=== PATIENT | male | born 1965 | race Caucasian/White ===

== ENCOUNTER 2022-12-10 10:32 | Emergency (ER) | payer OTHER ==
[~2022-12-10] VITALS: Ht 170.2 cm; Wt 100.0 kg
[2022-12-10 11:45] VITALS: BP 127/82
[2022-12-10 11:48] LABS: CLARITY,URINE SLIGHTLY CLOUDY (Clear); COLOR,URINE YELLOW (Yellow); GLUCOSE, URINE NEGATIVE (Neg); KETONES,URINE NEGATIVE (Neg); LEUKOCYTE ESTERASE ,URINE NEGATIVE (Neg); NITRITES, URINE NEGATIVE (Neg); OCCULT BLOOD,URINE NEGATIVE (Neg); PROTEIN,URINE NEGATIVE (Neg); UROBILINOGEN,URINE 0.2 E.U/dL (0.2-1.0)
[2022-12-10 11:50] LABS: UA COLLECTION TYPE CLN CATCH MIDSTREAM
[2022-12-10 12:13] LABS: MUCUS STRANDS MODERATE /LPF (Neg); SQUAMOUS EPITHELIAL CELL,UR FEW /LPF (FEW)
[2022-12-10 12:14] LABS: RBC,URINE 0-2 /HPF (0-2); TRANSITIONAL EPI CELLS,URINE FEW /HPF; WBC,URINE 0-4 /HPF (0-4)
[2022-12-10 12:16] LABS: AMORPHOUS PHOSPHATES 4+; BACTERIA,URINE FEW /HPF (Neg)
== END 2022-12-10 12:57 | disposition home or self-care (01) ==
LOC: ER 10:32
DX: S63.501A Unspecified sprain of right wrist, initial encounter (principal); R31.9 Hematuria, unspecified; F17.200 Nicotine dependence, unspecified, uncomplicated; E78.00 Pure hypercholesterolemia, unspecified; I10 Essential (primary) hypertension; X58.XXXA Exposure to other specified factors, initial encounter; Y93.89 Activity, other specified; Y92.89 Other specified places as the place of occurrence of the external cause; Y99.8 Other external cause status
CPT/HCPCS: 73100; 73110; 81001; 99284

== ENCOUNTER 2024-03-24 08:54 | Inpatient (IN) | payer BC, MEDICAID ==
[~2024-03-24] VITALS: Ht 170.2 cm; Wt 104.9 kg
[2024-03-24] MEDS ORDERED: pantoprazole 40mg IV 80 MG in normal saline 100ml IV soln 100 ML IV ONE (09:20)
[2024-03-24] MEDS: ondansetron/PF 4mg/2ml inj IV ONE (09:20)
[2024-03-24] MEDS ORDERED: morphine 2 MG/ML inj. syringe IV PRN ×3 (09:20→12:05)
[2024-03-24 10:14] LABS: EOSINOPHILS # (AUTO) 0.3 X10'3 (0-0.9); RED CELL DISTRIBUTION WIDTH 15.6 % (11.5-14.5)
[2024-03-24 10:15] LABS: BASOPHILS # (AUTO) 0.1 X10'3 (0-0.2); BASOPHILS % (AUTO) 1.1 % (0-1); EOSINOPHILS % (AUTO) 3.6 % (0-6); HEMATOCRIT 53.5 % (42.0-52.0); LYMPHOCYTES # (AUTO) 1.8 X10'3 (1.1-4.8); LYMPHOCYTES % (AUTO) 21.6 % (21-51); MEAN CORPUSCULAR HEMOGLOBIN 29.6 PG (27.0-31.0); MEAN CORPUSCULAR HGB CONC 33.5 g/dL (33.0-36.5); MEAN CORPUSCULAR VOLUME 88.1 FL (78-98); MEAN PLATELET VOLUME 8.9 FL (7.4-10.4); MONOCYTES # (AUTO) 0.9 X10'3 (0-0.9); MONOCYTES % (AUTO) 10.2 % (2-12); NEUTROPHILS # (AUTO) 5.4 X10'3 (1.8-7.7); NEUTROPHILS % (AUTO) 63.5 % (42-75); PLATELET COUNT 238 X10'3 (140-440); RED BLOOD COUNT 6.07 X10'6 (4.70-6.10); WHITE BLOOD COUNT 8.5 X10'3 (4.5-11.0)
[2024-03-24] MEDS: diltiazem 5mg/ml 5ml inj. IV ONE ×2 (10:44→11:31)
[2024-03-24] MEDS: pantoprazole 40 MG vial IV ONE (10:45)
[2024-03-24 10:55] LABS: ALANINE AMINOTRANSFERASE 27 U/L (12-78); ALKALINE PHOSPHATASE 65 IU/L (46-116); ANION GAP 6 (8-16); ASPARTATE AMINO TRANSFERASE 18 U/L (10-37); BILIRUBIN,TOTAL 0.7 MG/DL (0.1-1.0); BLOOD UREA NITROGEN 19 MG/DL (7-18); BUN/CREATININE RATIO 13.2 (10.0-20.0); CALCIUM 9.8 MG/DL (8.5-10.1); CHLORIDE 106 MMOL/L (99-107); CREATININE 1.44 MG/DL (0.60-1.10); GLUCOSE 116 MG/DL (70-104); POTASSIUM 4.4 MMOL/L (3.5-5.1); SODIUM 140 MMOL/L (135-145); TOTAL CARBON DIOXIDE 28.4 MMOL/L (24-32); eCRCL 52 ML/MIN; eGFR 50 ML/MIN
[2024-03-24 11:07] LABS: LIPASE 34 U/L (16-77); PRO BRAIN NATRIURETIC PEPTIDE 1155 PG/ML (0-125)
[2024-03-24] MEDS ORDERED: TADA20TA43 PO (11:18)
[2024-03-24] MEDS: diltiazem-NS 100mg/100ml 100 ML IV PRN (11:31)
[2024-03-24 11:41] LABS: APTT 28 SECONDS (22-32); PROTHROMBIN TIME 10.6 SECONDS (9.0-12.0)
[2024-03-24] MEDS: normal saline 1000ML IV soln IVB ONE (11:47)
[2024-03-24] MEDS ORDERED: potassium Cl 40MEQ/1/2NS 520ml 520 ML IV PRN (12:05)
[2024-03-24] MEDS ORDERED: magnesium hydroxide 30ml (MOM) UD suspension PO PRN (12:05)
[2024-03-24] MEDS ORDERED: ondansetron/PF 4mg/2ml inj IV PRN (12:05)
[2024-03-24] MEDS ORDERED: magnesium Cl slow-release 64mg tablet PO PRN (12:05)
[2024-03-24] MEDS ORDERED: magnesium 4gm in 100ml NS 100 ML IV PRN (12:05)
[2024-03-24] MEDS ORDERED: acetaminophen 325mg tablet PO PRN (12:05)
[2024-03-24] MEDS ORDERED: mag hydrox/Alum hydrox/simeth 30ml oral suspension PO PRN (12:05)
[2024-03-24] MEDS ORDERED: potassium Cl 20 mEq SR tablet PO PRN ×2 (12:05)
[2024-03-24] MEDS ORDERED: magnesium 2GM in 50ml NS 50 ML IV PRN (12:05)
[2024-03-24] MEDS: metoprolol tartrate 50mg tablet PO SCH (12:32)
[2024-03-24] MEDS: ringers solution, lacted 1,000 ML IV ONE (12:38)
[2024-03-24] MEDS: normal saline 1000ml 1,000 ML IV SCH (12:38)
[2024-03-24 13:02] LABS: OCCULT BLOOD STOOL POSITIVE (Neg)
[2024-03-24 14:03] LABS: PHOSPHORUS 3.5 MG/DL (2.3-4.5)
[2024-03-24] MEDS: K and/or MAG REPLACEMENT MC SCH (20:00)
[2024-03-24 21:25] VITALS: BP 146/101; PULSE 74; RESP 15; TEMP 97.6; O2SAT 98
[2024-03-24] MEDS: pantoprazole 40 MG vial IV SCH (22:19)
[2024-03-24] MEDS: diltiazem 30mg tablet PO ONE (23:25)
[2024-03-25] VITALS (14 sets, daily range): BP systolic 105–148; BP diastolic 69–103; PULSE 58–83; RESP 10–18; TEMP 97.3–97.7; O2SAT 94–98
[2024-03-25] MEDS: diltiazem 30mg tablet PO SCH (05:23)
[2024-03-25 05:57] LABS: BASOPHILS # (AUTO) 0.1 X10'3 (0-0.2); EOSINOPHILS # (AUTO) 0.3 X10'3 (0-0.9); EOSINOPHILS % (AUTO) 4.1 % (0-6); HEMATOCRIT 47.7 % (42.0-52.0); HEMOGLOBIN 15.9 g/dl (14.0-17.9); LYMPHOCYTES % (AUTO) 24.3 % (21-51); MEAN CORPUSCULAR HEMOGLOBIN 29.5 PG (27.0-31.0); MEAN CORPUSCULAR HGB CONC 33.4 g/dL (33.0-36.5); MEAN CORPUSCULAR VOLUME 88.3 FL (78-98); MEAN PLATELET VOLUME 8.7 FL (7.4-10.4); MONOCYTES # (AUTO) 0.8 X10'3 (0-0.9); MONOCYTES % (AUTO) 9.5 % (2-12); NEUTROPHILS % (AUTO) 61.1 % (42-75); PLATELET COUNT 187 X10'3 (140-440); RED CELL DISTRIBUTION WIDTH 15.4 % (11.5-14.5); WHITE BLOOD COUNT 8.1 X10'3 (4.5-11.0)
[2024-03-25 06:12] LABS: ALBUMIN 3.4 G/DL (3.4-5.0); ANION GAP 5 (8-16); BLOOD UREA NITROGEN 24 MG/DL (7-18); BUN/CREATININE RATIO 18.5 (10.0-20.0); CALCIUM 8.8 MG/DL (8.5-10.1); CHLORIDE 108 MMOL/L (99-107); CHOL/HDL RATIO 5.8 (0.00-4.99); CHOLESTEROL 185 MG/DL (0-200); GLUCOSE 106 MG/DL (70-104); HDL CHOLESTEROL 32 MG/DL (35-60); LDL CHOLESTEROL 130 MG/DL (50-100); POTASSIUM 4.2 MMOL/L (3.5-5.1); SODIUM 138 MMOL/L (135-145); TOTAL CARBON DIOXIDE 25.2 MMOL/L (24-32); TRIGLYCERIDES 137 MG/DL (20-135); eCRCL 57 ML/MIN; eGFR 57 ML/MIN
[2024-03-25] MEDS ORDERED: LIDOcaine 2% Viscous 15ml cup ONE (09:21)
[2024-03-25] MEDS ORDERED: fentaNYL/PF 50MCG/1 ML 2ML syringe ONE (09:52)
[2024-03-25] MEDS ORDERED: MIDAZolam 1 MG/ML 5ML VIAL ONE (09:52)
[2024-03-25] MEDS ORDERED: fentaNYL/PF 50MCG/1 ML 2ML syringe IV PRN (10:20)
[2024-03-25] MEDS: normal saline 1000ml 1,000 ML IV SCH (10:20)
[2024-03-25] MEDS ORDERED: MIDAZolam 1 MG/ML 5ML VIAL IV PRN (10:20)
[2024-03-25] MEDS ORDERED: pantoprazole 40mg Tablet.DR PO SCH ×2 (10:24→20:00)
[2024-03-25] MEDS: atorvastatin 20mg tablet PO SCH (11:17)
[2024-03-25] MEDS: metoprolol tartrate 25mg tablet PO SCH (11:18)
[2024-03-25] MEDS ORDERED: OMEP-271 PO (13:33)
[2024-03-25] MEDS ORDERED: ATOR20TA66 PO (13:33)
[2024-03-25] MEDS ORDERED: METO50TA17 PO (13:33)
[2024-03-25] MEDS ORDERED: DOCU-148 PO (13:40)
[2024-03-25] MEDS ORDERED: POLY17PO10 PO (13:40)
== END 2024-03-25 15:30 | disposition home or self-care (01) | DRG 377 ==
LOC: ER 08:55 → ED HOLD 12:16 → PCU 3S 21:25
PROVIDERS: ADMIT Internal Medicine; ATTEND Internal Medicine
PROC: 0DB78ZX Excision of Stomach, Pylorus, Via Natural or Artificial Opening Endoscopic, Diagnostic (ICD-10-PCS; principal; 2024-03-25)
DX: K29.71 Gastritis, unspecified, with bleeding (principal); I21.A1 Myocardial infarction type 2; I50.31 Acute diastolic (congestive) heart failure; N17.0 Acute kidney failure with tubular necrosis; K21.01 Gastro-esophageal reflux disease with esophagitis, with bleeding; K25.4 Chronic or unspecified gastric ulcer with hemorrhage; I48.91 Unspecified atrial fibrillation; K29.81 Duodenitis with bleeding; Z66 Do not resuscitate; E78.00 Pure hypercholesterolemia, unspecified; I11.0 Hypertensive heart disease with heart failure
CPT/HCPCS: 36415; 43239; 71045; 74176; 80048; 80053; 80061; 82272; 83690; 83735; 83880; 84100; 84484; 85025; 85610; 85730; 86885; 86900; 86901; 93005; 93306; 96365; 96376; 99152; 99291; A4620; C9113; G0378; J2250; J3010; J3490; J7030; J7120